=== PATIENT | female | born 1965 | race Caucasian/White ===

== ENCOUNTER 2024-02-13 11:37 | Outpatient (OUT) | payer OTHER, SELFPAY ==
[2024-02-13 13:23] LABS: Lactate Dehydrogenase 172 U/L (81-234)
[2024-02-14 04:09] LABS: AFP, Serum, Tumor Marker 6.5 ng/mL (0.0-9.2); CEA 0.7 ng/mL (0.0-4.7); Cancer Antigen (CA) 125 34.2 U/mL (0.0-38.1); HCG Tumor Marker 4 mIU/mL (.)
== END 2024-02-13 11:38 | disposition home or self-care (01) ==
LOC: LAB 11:43
PROVIDERS: Family Provider Family Medicine; PCP Family Medicine; Visit Provider Obstetrics & Gynecology
DX: N83.8 Other noninflammatory disorders of ovary, fallopian tube and broad ligament (principal)
CPT/HCPCS: 36415; 82105; 82378; 83615; 84702; 86304

== ENCOUNTER 2024-03-04 13:25 | Outpatient (OUT) | payer OTHER, SELFPAY ==
--- NOTE | 2024-03-04 13:33 | ECG_ITS ---
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
== END 2024-03-04 13:26 | disposition home or self-care (01) ==
LOC: PST 13:26
PROVIDERS: Family Provider Family Medicine; PCP Family Medicine; Visit Provider Obstetrics & Gynecology
DX: Z01.810 Encounter for preprocedural cardiovascular examination (principal); N83.8 Other noninflammatory disorders of ovary, fallopian tube and broad ligament
CPT/HCPCS: 93005

== ENCOUNTER 2024-03-13 09:59 | Day surgery (SDC) | payer OTHER, SELFPAY ==
[2024-03-04 14:09] VITALS: BP 149/77; PULSE 110; TEMP 36.5; O2SAT 99; BMI 23.5
[2024-03-13] VITALS (12 sets, daily range): BP systolic 116–147; BP diastolic 75–90; PULSE 79–115; TEMP 36.2–36.3; O2SAT 97–100; BMI 22.5
[2024-03-13 10:08] LABS: Basophils Percent Auto 0.4 % (0.2-2.0); Eosinophils Percent Auto 0.4 % (0.9-7.0); Hematocrit 44.6 % (36.0-48.0); Hemoglobin 15.4 g/dL (12.0-16.0); Immature Granulocytes Abs Auto 0.03 10^3/uL (0.00-0.03); Immature Granulocytes Pct Auto 0.3 % (0.0-0.5); Lymphocytes Absolute Auto 1.7 10^3/uL (1.2-3.8); Mean Corpuscular HGB Conc 34.5 g/dL (29.9-35.2); Mean Corpuscular Hemoglobin 31.8 pg (26.7-34.0); Mean Corpuscular Volume 92.1 fL (81.0-99.0); Monocytes Absolute Auto 0.6 10^3/uL (0.3-0.8); Monocytes Percent Auto 5.8 % (1.7-12.0); Neutrophils Absolute Auto 8.1 10^3/uL (1.4-6.5); Neutrophils Percent Auto 77.1 % (43.0-75.0); Platelet Count 332 10^3/uL (150-450); Red Blood Count 4.84 10^6/uL (4.20-5.40); Red Cell Distribution Width 12.4 % (11.0-15.0); White Blood Count 10.5 10^3/uL (4.0-11.0)
--- OUTSIDE RECORDS SUMMARY | 2024-03-13 10:10 | XMS_ITS | CCD ---
Author Organization [facility] Care Team Providers Care Aoc Plans Intelligence Officer Name Role Phone FRANKY DE LA PAZ Attending Unavailable FRANKY DE LA PAZ Referring Unavailable CHRISTINE GOETZ Attending Unavailable FRANKY DE LA PAZ Referring Unavailable HERACLIO, EHAB Attending Unavailable Results Test Name Value Interpretation Reference Range Facil ity Office Visiton 03-09-2024 Follow-up visit [id number] Vannesa Hill 1965 F Date Provider Department Center 03/09/2024 [id number]-HERACLIO, EHAB CARD [facility] Family History Problem Relation Age of Onset No Known Problems Mother No Known Problems Father Family Status - Relation Status Age at Mother Father Level of Service:87129 GA OFFICE/OUTPATIENT NEW MODERATE MDM 45 MINUTES Normal [facility] US PELVIS TRANSVAGINALon US PELVIS TRANSVAGINAL FINDINGS: Uterus 4.9 x 3.9 x 2.0cm Endometrium 3 mm Right Ovary see below Left Ovary not seen. Normal uterine orientation, myometrium and endometrium. Complex partially cystic, minimally shadowing right adnexal 14.0 x 10.0 x 10.0 cm mass. MInimal pelvic fluid. IMPRESSION: Right adnexal mass, benign and malignant neoplastic etiologies (ovarian) should be considered. CT imaging of the abdomen and pelvis may be assistance for further characterization. TRANSCRIBED BY: ELECTRONICALLY SIGNED BY: Saeed Adames MD Normal Not Available Encounters Encounter Date Encounter Type Care Provider Facility Start: 03-09-2024 End: 03-09-2024 ambulatory [facility] Start: 03-09-2024 End: 03-09-2024 Encounter for other preprocedural examination [facility] Start: 02-13-2024 End: 02-13-2024 ambulatory CHRISTINE GOETZ Not Available Start: 01-14-2024 End: 01-14-2024 ambulatory FRANKY DE LA PAZ Not Available Start: 01-07-2024 End: 01-07-2024 ambulatory FRANKY DE LA PAZ Not Available Payers Date Payer Category Payer Unknown [id number] 1965 Unknown [id number] 1965 Unknown [id number] 1965 Unknown [id number] Progress note 03-09-2024 Note Date & Type Note Facility 03-09-2024 Note [facility] Note Chief Complaint: new patient here to establish care. Referred from Dr Goetz for surgery clearence. Scheduled for surgery 03/13. EKG was done last week. Patient denies sob, palpitations, chest pains HPI: Vannesa Hill is a 58 y.o. female With no significant medical problems. Specifically, she has no diabetes, she has no hypertension or dyslipidemia. She does not smoke. No family history of premature coronary artery disease. She is able to walk up and down a flight of stairs without chest pain or shortness of breath. She is physically active on her job without concerning chest discomfort. She has no orthopnea, no paroxysmal external dyspnea, no lower extremity edema. She informs me that her heart rate is always a little on the high side whenever she is in a physician's office due to anxiety. She is scheduled for Ovarian cyst removal. Cardiology ROS: Review of Systems Constitutional: Negative. Past Medical History She has no past medical history on file. Surgical History She has no past surgical history on file. Social History She has no history on file for tobacco use, alcohol use, and drug use. Family History No family history on file. Allergies Patient has no allergy information on record. Medications No current outpatient medications on file. Last Recorded Vitals BP 144/84 Pulse 110 Ht 1.575 m (5' 2 ) Wt 57.6 kg (127 lb) SpO2 98% BMI 23.23 kg/m??? Physical Examination: GENERAL: alert and oriented x3, well developed, in no acute distress. HEAD: atraumatic, normocephalic. EYES: LALO, EOMI. NECK: trachea midline, no JVD present, no carotid bruits present. CARDIAC: S1, S2 present. RRR. No murmur, rubs, or gallops. RESPIRATORY: CTAB, no increased effort of breathing, no rales, rhonchi, or wheezing. ABDOMEN: soft, nontender, nondistended. EXTREMITIES: no lower extremity edema, peripheral pulses are 2+ bilaterally. No rash/skin discoloration present. NEURO: strength/sensation equal and symmetric in bilateral upper and lower extremities. PSYCH: appropriate mood, affect, and judgement. EKG 03/04/2024: Sinus rhythm, sinus tachycardia 109 bpm, nonspecific ST-T wave change Assessment: Preoperative evaluation Sinus tachycardia Plan: Her physical med level is above 4 METS, she has no concerning symptoms, there is no signs or symptoms of angina, heart failure, or significant arrhythmias; therefore she is at low risk to proceed with planned surgery with no further cardiovascular testing needed at this time Recommend strict heart rate and blood pressure control and avoidance of major fluid shifts I will defer any investigations for sinus tachycardia to her family physician; if indeed as the patient describes this is only an issue when she is in a physician's office, no further investigations are necessary. I would be happy to see her on an as-needed basis China Valdes MD, MPH, FACC, [facility], [facility] Interventional Cardiology Pager Email: [email or web address] Summary Purpose Family History No Family History Records FoundNo Family History Records Found Advance Directives No Advanced Directives Records FoundNo Advanced Directives Records Found Additional Source Comments INFORMATION SOURCE (unrecogn ized section and content) DATE CREATED AUTHOR 02/19/2024 [facility] DATE CREATED AUTHOR SAMEERS PADMINIIZ ATION 03/11/2024 [facility] FOR RECORDS PERTAINING TO PATIENTS WHO ARE OR HAVE BEEN ENROLLED IN A CHEMICAL DEPENDENCY/SUBSTANCEABUSE PROGRAM, SOME INFORMATION MAY BE OMITTED. This clinical summary was aggregated from multiple sources. Caution should be exercised in using it in the provision of clinical care. This summary normalizes information from multiple sources, and as a consequence, information in this document may materially change the coding, format and clinical context of patient data. In addition, data may be omitted in some cases. CLINICAL DECISIONS SHOULD BE BASED ON THE PRIMARY CLINICAL RECORDS. [facility] [employer] [facility] provides no warranty or guarantee of the accuracy or completeness of information in this document.
[2024-03-13] MEDS: LACTATED RINGER'S SOLUTION 1,000 ML 50 ML IV ×3 (10:53→12:57)
--- NOTE | 2024-03-13 13:21 | P.ON_ITS ---
Brief Operative Note Date of procedure: 03/13/24 Pre-op diagnosis general: rt adnexal mass Post-op diagnosis: same as pre-op Procedure: NAME OF PROCEDURE: [diagnostic laparoscopy ] PROCEDURE: The patient was taken back to the Operating Room where she was placed in dorsal lithotomy position after given general anesthesia. The patient was prepped and draped in normal sterile fashion. A sponge stick was placed into the patient's vagina. Attention was turned to the patient's abdomen, where a small umbilical incision was made. The fascia was tented using Arleth clamps and the fascia was entered sharply. Confirmation of intraabdominal placement of the 10 mm port was confirmed under direct visualization using a laparoscope. The patient's abdomen was then insufflated using CO2 gas with approximately 4 liters. A second and third ports was placed rt and left laterally, this was done under direct visualization with a 5 mm port. Survey of the patient's abdomen demonstrated normal liver and gallbladder. Survey of the patient's pelvic anatomy demonstrated normal appearing lt ovary and tubes as well as normal appearing uterus. rt large 10cm rt endometrioma was seen, it was incidently drained and fluid was collected, large portion of the rt endometrioma cyst wall was removed, dt extensive adhesions to bowel and pelvic side wall, was unable to remove the ovary in its entirity, no evidence of any pelvic disease was seen, normal alie earing pelvic cavity. endocatch was used to remove the cyst wall. cyst fluid and wall was sent off to pathology. All instruments were removed from the patient's abdomen. The patient's abdomen was deinsufflated of CO2 gas. The patient tolerated the procedure well. Sponge stick was removed from the patient's vagina. The patient's infraumbilical fascia was closed using #0 Vicryl on a GI needle. The patient's skin was closed laterally and infraumbilically using 4-0 Vicryl. The patient tolerated the procedure well. Sponge, lap and needle counts were correct x 2. The patient was taken to Recovery Room in stable condition. Anesthesia: SARA Surgeon: Song Goetz [employer] Engineer: Shahrzad Chakraborty Estimated blood loss (mL): 25 Pathology: other (ovarian cyst fluid and cyst wall) Condition: stable Disposition: PACU Urinary Catheter Management Urinary Catheter Management Urethral: Cath placed during this visit: no
--- NOTE | 2024-03-13 15:27 | PC.NURSE ---
Emesis of scant amount after taking supplements from home along with beet juice; c/o dizziness after sitting up quickly to have emesis; denies urge to void and peripad dry
--- NOTE | 2024-03-13 15:48 | PC.NURSE ---
Emesis of beet juice that pt. brought from home; does not want any medication for nausea at this time; continues to c/o dizziness and denies urge to void
[2024-03-13] MEDS: LACTATED RINGER'S SOLUTION 1,000 ML 150 ML IV (15:52)
[2024-03-13] MEDS: ONDANSETRON PF 4 MG/2 ML VIAL IV (16:11)
--- NOTE | 2024-03-13 16:17 | PC.NURSE ---
Emesis of redbeet juice; medicated with Zofran IV per pt. request; peripad dry
--- NOTE | 2024-03-13 17:12 | PC.NURSE ---
Up to bathroom using wheelchair; void[facility] clear yellow [facility] Continues to c/o dizziness and nausea, no emesis at this time,holding alcohol pad to nares. Mid dressing changed using 4x4 and opsite after pressure applied to site for 5 minutes; no active drainage noted after that.
== END 2024-03-13 16:55 | disposition home or self-care (01) ==
PROVIDERS: Family Provider Family Medicine; PCP Family Medicine; Visit Provider Obstetrics & Gynecology
PROC: (CPT 840; principal; 2024-03-13 11:00)
DX: C54.1 Malignant neoplasm of endometrium (principal); N83.8 Other noninflammatory disorders of ovary, fallopian tube and broad ligament; N80.121 Deep endometriosis of right ovary; D26.1 Other benign neoplasm of corpus uteri; R10.2 Pelvic and perineal pain
CPT/HCPCS: 49322; 58662; 36415; 85025; 88112; 88307; 88341; 88342; 99999; J1100; J1170; J1885; J2250; J2405; J2704; J3010